=== PATIENT | female | born 1985 | race Caucasian/White ===

== ENCOUNTER 2017-03-24 17:13 | Emergency (ER) | payer BC ==
[~2017-03-24] VITALS: Ht 172.7 cm; Wt 63.0 kg
[2017-03-24 17:16] VITALS: BP 118/76
[2017-03-24 17:57] LABS: HEMATOCRIT 42.7 % (34.6-47.8); HEMOGLOBIN 14.2 g/dL (11.7-16.4); WHITE BLOOD COUNT 5.9 x10^3/uL (3.4-10)
[2017-03-24] MEDS ORDERED: ASPIRIN 81 MG TABLET CHEW PO ONE (18:00)
[2017-03-24 18:10] LABS: BLOOD UREA NITROGEN 12 mg/dL (7-18)
[2017-03-24 18:14] LABS: IS PT STATUS REG ER OR PRE ER? YES
[2017-03-24] MEDS ORDERED: ASPIRIN 81 MG TABLET CHEW ONE (18:21)
== END 2017-03-24 19:00 ==
LOC: ED 18:51
DX: R07.89 Other chest pain (principal); M94.0 Chondrocostal junction syndrome [Tietze]
CPT/HCPCS: 36415; 71020; 80048; 82040; 84484; 85025; 93005; 99285

== ENCOUNTER → 2017-07-28 | Outpatient (CLI) | payer BC, OTHER | END | disposition home or self-care (01) | LOC: PETCFH 09:18 | PROVIDERS: ATTEND Nurse Practitioner Family | DX: R11.2 Nausea with vomiting, unspecified (principal); R14.0 Abdominal distension (gaseous); R10.84 Generalized abdominal pain; R19.7 Diarrhea, unspecified; R63.4 Abnormal weight loss | CPT/HCPCS: 78264; A9541 ==